=== PATIENT | male | born 2000 | race Caucasian/White ===

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

== ENCOUNTER 2018-08-21 14:02 | Emergency (ER) | payer MEDICAID ==
[~2018-08-21] VITALS: Ht 172.7 cm; Wt 56.2 kg
[2018-08-21 14:13] VITALS: Ht 172.7 cm; Wt 56.2 kg
[2018-08-21 16:41] VITALS: BP 116/65
== END 2018-08-21 16:41 | disposition home or self-care (01) ==
LOC: ED 14:02
DX: S02.652A Fracture of angle of left mandible, initial encounter for closed fracture (principal); I10 Essential (primary) hypertension; W18.30XA Fall on same level, unspecified, initial encounter; Y93.51 Activity, roller skating (inline) and skateboarding; Y99.8 Other external cause status; Y92.89 Other specified places as the place of occurrence of the external cause
CPT/HCPCS: J0696; J7030; J7050